=== PATIENT | female | born 1930 | race Caucasian/White ===

== ENCOUNTER 2017-01-30 09:55 | Emergency (ER) | payer OTHER ==
[~2017-01-30] VITALS: Ht 152.4 cm; Wt 61.2 kg
[~2017-01-30 09:55] MED LIST: ALDACTONE25 MG PO; ALEVE220 MG PO; ALPRAZOLAM 0.0.25 M1 PO; ASPIRIN EC325 M1 PO; AUGMENTIN 500-1 EACH PO; BRIMONIDINE TAR1 BO1 OP; CELEXA 20 MG TA20 M1 PO; CELEXA20 MG PO; FISH OIL 1,0001 EAC7 PO; FOLIC ACID1 MG PO; HYDROXYZINE HCL25 M1 PO; IBUPROFEN 800800 MG PO; LOSARTAN-HCTZ1 EAC1 PO; MECLIZINE HCL25 M1 PO; NORCO 5-325 TA1 EACH PO; OMEPRAZOLE20 M2 PO; OXYBUTYNIN 5 MG5 M1 PO; PRED-FORTE OPHTH1 M1 OP; PROTONIX40 M2 PO; SANCTURA XR60 M1 PO; SIMVASTATIN40 MG PO; TOFRANIL-PM75 MG PO; TOPROL XL50 MG PO; TRAMADOL 50 MG50 MG PO; TRAVATAN Z2.5 ML OPHTHALMIC; ZANAFLEX2 M1 PO; [UNRECOGNIZED DRUG - REMARK]
[2017-01-30 11:15] VITALS: BP 161/72
== END 2017-01-30 11:15 | disposition home or self-care (01) ==
LOC: ER 09:55
DX: S63.502A Unspecified sprain of left wrist, initial encounter (principal); I10 Essential (primary) hypertension; M06.9 Rheumatoid arthritis, unspecified; Z86.73 Personal history of transient ischemic attack (TIA), and cerebral infarction without residual deficits; Z90.710 Acquired absence of both cervix and uterus; Z90.89 Acquired absence of other organs; Z96.0 Presence of urogenital implants; W01.0XXA Fall on same level from slipping, tripping and stumbling without subsequent striking against object, initial encounter; Y93.89 Activity, other specified; Y92.89 Other specified places as the place of occurrence of the external cause; Y99.9 Unspecified external cause status

== ENCOUNTER → 2017-05-16 | Outpatient (CLI) | payer OTHER ==
--- NOTE | ~2017-05-16 | S ---
[facility] [place] [address] SURGICAL PATH RPT PROCEDURE Name: YAMILA MOSES Room #: REG [facility].#: [id number] Admission: 05/16/17 Date of : 34 Discharge: Report #: [id number] Path Case #: [id number] PATHOLOGY REPORT COLLECTION DATE: 05/16/2017 RECEIVED DATE: 05/16/2017 SUBMITTING PHYS: Dr. Monique Sánchez OTHER PHYS: Dr. Clifford Zheng ADDENDUM REPORT (Order Date: 05/17/2017 00:00) ADDENDUM COMMENT: Please see next page for scanned image of report submitted by [employer] consultant pathologist, Gus Roth M.D. (IUV:amj; d/t: 05/21/2017) ELECTRONICALLY SIGNED BY: Ragini Mcdermott M.D. DATE/TIME:05/21/2017 13:47 SPECIMEN(S) RECEIVED: A.Right kidney * * * * * * * * * * * * FINAL DIAGNOSIS: Kidney, right kidney, needle core biopsy: - Collapsing focal segmental glomerulosclerosis. 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 - Tubular atrophy and interstitial fibrosis, severe. - Acute tubular injury. - Arterio and arteriolosclerosis with hyalinosis, moderate to severe. COMMENT: This case was sent to [facility]. Their report will be attached as an addendum. Please see separate "scanned image" under Laboratories. (IUV:mgr; 05/21/2017) PATHOLOGIST: Ragini Mcdermott M.D. REPORT ELECTRONICALLY SIGNED BY: Ragini Mcdermott M.D. DATE/TIME: 05/21/2017 13:47 * * * * * * * * * * * * GROSS PATHOLOGY: Received in formalin labeled "Yamila Moses, right kidney," are four [facility] [place] [address] SURGICAL PATH RPT PROCEDURE Name: YAMILA MOSES Room #: REG [facility].#: [id number] Admission: 05/16/17 Date of : 34 Discharge: Report #: [id number] Path Case #: [id number] distinct needle cores of yap soft tissue ranging from 1.0 to 1.9 cm in length, with each measuring 0.1 cm in diameter. The specimen is forwarded to an outside laboratory for further processing. Also received is a container of Destin's fixative, labeled "Yamila Moses right kidney". Received are two needle cores of pale yap soft tissue measuring 1.2 and 1.6 cm in length, with each measuring 0.1 cm in diameter. The specimen is forwarded its entirety to an outside laboratory for direct immunofluorescent studies. (CAA; 05/16/2017) CLINICAL HISTORY: Proteinuria, CKD INITIAL CPT CODE(S): A; 18376 Professional services performed by [facility] at [facility] [address], [place] [address] Technical services performed by [facility] at [address] [place] [address]., [address], [place] [address]. [facility] [address] [place] [address] PHONE: [phone] DIRECTOR: Arben Murillo M.D. * * * END OF REPORT * * *
[2017-05-16 07:56] LABS: APTT 30.5 Seconds (24.5-32.8)
[2017-05-16 09:10] VITALS: BP 178/75
[2017-05-16 09:15] VITALS: BP 158/75
[2017-05-16 09:20] VITALS: BP 150/90
[2017-05-16 09:25] VITALS: BP 117/63
[2017-05-16 09:30] VITALS: BP 159/74
[2017-05-16 09:40] VITALS: BP 154/66
== END | disposition home or self-care (01) ==
LOC: ULTRA 06:49
PROVIDERS: Internal Medicine Nephrology
DX: N17.9 Acute kidney failure, unspecified (principal); I12.9 Hypertensive chronic kidney disease with stage 1 through stage 4 chronic kidney disease, or unspecified chronic kidney disease; N18.4 Chronic kidney disease, stage 4 (severe); I25.10 Atherosclerotic heart disease of native coronary artery without angina pectoris; I42.9 Cardiomyopathy, unspecified; E78.5 Hyperlipidemia, unspecified; M06.9 Rheumatoid arthritis, unspecified; M85.80 Other specified disorders of bone density and structure, unspecified site; Z90.710 Acquired absence of both cervix and uterus; Z90.49 Acquired absence of other specified parts of digestive tract; Z98.41 Cataract extraction status, right eye; Z98.42 Cataract extraction status, left eye; Z86.73 Personal history of transient ischemic attack (TIA), and cerebral infarction without residual deficits; Z95.5 Presence of coronary angioplasty implant and graft; Z96.1 Presence of intraocular lens; Z98.890 Other specified postprocedural states; Z79.899 Other long term (current) drug therapy; Z79.82 Long term (current) use of aspirin

== ENCOUNTER 2017-12-25 19:40 | Emergency (ER) | payer OTHER ==
[~2017-12-25] VITALS: Ht 152.4 cm; Wt 54.4 kg
[2017-12-25] MEDS ORDERED: KEFLEX500 M1 PO (22:38)
[2017-12-25 23:18] VITALS: BP 108/40
== END 2017-12-25 23:20 | disposition home or self-care (01) ==
LOC: ER 19:40
DX: L03.031 Cellulitis of right toe (principal); M19.90 Unspecified osteoarthritis, unspecified site; M06.9 Rheumatoid arthritis, unspecified; I25.10 Atherosclerotic heart disease of native coronary artery without angina pectoris; E78.5 Hyperlipidemia, unspecified; I12.9 Hypertensive chronic kidney disease with stage 1 through stage 4 chronic kidney disease, or unspecified chronic kidney disease; N18.4 Chronic kidney disease, stage 4 (severe); Z90.89 Acquired absence of other organs; Z86.73 Personal history of transient ischemic attack (TIA), and cerebral infarction without residual deficits

== ENCOUNTER → 2019-11-10 | Outpatient (CLI) | payer OTHER ==
[~2019-11-10] MED LIST changes: +KEFLEX500 M1 PO
== END ==
LOC: SJCVCIMAG 09:32
DX: I08.8 Other rheumatic multiple valve diseases (principal); I31.3 Pericardial effusion (noninflammatory); R94.31 Abnormal electrocardiogram [ECG] [EKG]; R53.83 Other fatigue; I25.10 Atherosclerotic heart disease of native coronary artery without angina pectoris; I13.11 Hypertensive heart and chronic kidney disease without heart failure, with stage 5 chronic kidney disease, or end stage renal disease; N18.6 End stage renal disease; E78.00 Pure hypercholesterolemia, unspecified; M85.80 Other specified disorders of bone density and structure, unspecified site; I25.2 Old myocardial infarction; Z99.2 Dependence on renal dialysis; Z79.82 Long term (current) use of aspirin; Z79.899 Other long term (current) drug therapy

== ENCOUNTER → 2019-12-30 | Outpatient (CLI) | payer OTHER | LOC: SJCVCIMAG 12:52 | DX: I45.10 Unspecified right bundle-branch block (principal); R53.83 Other fatigue; I25.10 Atherosclerotic heart disease of native coronary artery without angina pectoris; I10 Essential (primary) hypertension; E78.5 Hyperlipidemia, unspecified; Z79.82 Long term (current) use of aspirin; Z79.899 Other long term (current) drug therapy ==